=== PATIENT | female | born 1940 | race Caucasian/White ===

== ENCOUNTER 2017-10-01 20:07 | Inpatient (IN) | payer MEDICARE, OTHER ==
[~2017-10-01] VITALS: Ht 170.2 cm; Wt 59.0 kg
[2017-10-01] MEDS ORDERED: CELE50CA PO (20:29)
[2017-10-01] MEDS ORDERED: LIOT5TAB10 PO (20:30)
[2017-10-01] MEDS ORDERED: ESCI5TAB7 PO (20:30)
[2017-10-01] MEDS ORDERED: SODIUM CHLORIDE 0.9% 1,000ML IVBOLUS ONE (21:00)
[2017-10-01] MEDS ORDERED: PROPOFOL 10 MG/ML, 20ML IVPush ONE (21:30)
[2017-10-01] MEDS ORDERED: PROPOFOL 10 MG/ML, 20ML ONE (21:33)
[2017-10-01] MEDS ORDERED: ETOMIDATE 20 MG/10 ML ONE (21:48)
[2017-10-01] MEDS ORDERED: POLYETHYLENE GLYCOL 17 GM PACKET PO PRN (23:30)
[2017-10-01] MEDS ORDERED: BISACODYL 10 MG SUPP PR PRN (23:30)
[2017-10-01] MEDS ORDERED: ACETAMINOPHEN 325 MG TABLET PO PRN (23:30)
[2017-10-01] MEDS ORDERED: ONDANSETRON 2MG/ML, 2ML IVPush PRN (23:30)
[2017-10-01 23:39] VITALS: BP 118/68
[2017-10-02] MEDS: HEPARIN 5,000 UNITS/ML, 1ML SQ SCH ×2 (00:06→07:56)
[2017-10-02] MEDS: SODIUM CHLORIDE FLUSH 10ML SYR IVF SCH ×2 (00:13→07:56)
[2017-10-02] MEDS: OXYcodone IR 5MG TABLET PO PRN ×3 (00:29→14:27)
[2017-10-02 01:30] VITALS: BP 114/60
[2017-10-02 07:54] VITALS: BP 106/53
[2017-10-02] MEDS ORDERED: SENNA/DOCUSATE TABLET PO SCH (09:00)
[2017-10-02 13:20] VITALS: BP 122/63
== END 2017-10-02 15:15 | disposition home or self-care (01) | DRG 561 ==
LOC: ED 23:27 → 4NOR 23:30
PROVIDERS: ADMIT Hospitalist; ATTEND Hospitalist
PROC: 0SWRXJZ Revision of Synthetic Substitute in Right Hip Joint, Femoral Surface, External Approach (ICD-10-PCS; principal; 2017-10-01)
DX: T84.020A Dislocation of internal right hip prosthesis, initial encounter (principal); E03.9 Hypothyroidism, unspecified; Z96.643 Presence of artificial hip joint, bilateral; F32.9 Major depressive disorder, single episode, unspecified; X58.XXXA Exposure to other specified factors, initial encounter; Y93.89 Activity, other specified; Y92.89 Other specified places as the place of occurrence of the external cause; Y99.8 Other external cause status; Z90.49 Acquired absence of other specified parts of digestive tract; Z98.42 Cataract extraction status, left eye; Z98.41 Cataract extraction status, right eye
CPT/HCPCS: 27250; 99285; J1644